=== PATIENT | female | born 1990 | race Caucasian/White ===

== ENCOUNTER 2019-02-23 16:50 | Emergency (ER) | payer OTHER ==
[~2019-02-23] VITALS: Ht 165.1 cm; Wt 55.8 kg
[~2019-02-23 16:50] MED LIST: ZITHROMAX Z PA250 MG PO
[2019-02-23] MEDS ORDERED: ROPINIROLE HYD0.5 MG PO (17:18)
[2019-02-23] MEDS ORDERED: ZOFRAN4 MG PO (17:18)
== END 2019-02-23 17:20 | disposition home or self-care (01) ==
LOC: ED 16:50
DX: F19.10 Other psychoactive substance abuse, uncomplicated (principal); R11.2 Nausea with vomiting, unspecified; R50.9 Fever, unspecified; R42 Dizziness and giddiness; F11.10 Opioid abuse, uncomplicated; F15.10 Other stimulant abuse, uncomplicated; F17.200 Nicotine dependence, unspecified, uncomplicated

== ENCOUNTER 2019-02-24 14:41 | Inpatient (IN) | payer OTHER ==
[~2019-02-24] VITALS: Ht 165.1 cm; Wt 57.3 kg
--- NOTE | ~2019-02-24 | CON ---
[place], [place] REPORT OF CONSULTATION NAME: JULI FRANCES UNIT #: [id number] ROOM: 517 DOCTOR: MACI AVLLE MD BIRTHDATE: [birth year] DOS: 02/25/2019 CHIEF COMPLAINT: "I'm going through a really bad detoxification." HISTORY OF PRESENT ILLNESS: This is a 28-year-old white female who was admitted due to severe detoxification. The patient is an active IV heroin user utilizing heroin night at 10 times a day. She has been using for multiple years with a period of brief sobriety. Additionally, she has started to use methamphetamine as well. The patient was admitted now to the [facility], but is actively detoxing, reporting poor sleep and appetite, nausea, vomiting, diaphoresis, shaking, and poor sleep. The patient states that as a young child, she had seen a psychiatrist and a counselor but does not remember what medication she was on in the past. MENTAL STATUS: She is alert and oriented. Mood does seem to be depressed with anxious overtones. She does appear somewhat distraught and uncomfortable, and admits to active withdrawal symptoms. There is no hypomania, mary, or psychosis. Memory is intact. DIAGNOSIS: Major depression, recurrent and polysubstance dependence. PLAN: I will start her on Zyprexa 2.5 mg in the morning and 5 mg at night along with Remeron 15 mg at bedtime and discontinue the trazodone. Both the Remeron and the Zyprexa will block a lot of the withdrawal symptoms. They will decrease nausea and vomiting; they will stop some of the restlessness, relieve the anxiety, and improve sleep and appetite. I did tell her that if she continues to experience withdrawal symptoms in the morning, please have the resident on the case call me, and I can offer other suggestions to make her comfortable. At this point, when she is ready for discharge, she can follow up in my office in [place]. MACI VALLE MD CM:CONSTR:REPORT OF CONSULTATION 1007 02/26/19 0136 interface
[~2019-02-24 14:41] MED LIST changes: +ROPINIROLE HYD0.5 MG PO; +ZOFRAN4 MG PO
[2019-02-24 14:48] VITALS: BP 122/73
[2019-02-24 15:50] LABS: URINE AMPHETAMINES > 1000 (1000ng/ml); URINE BARBITURATES > 200 (200ng/ml); URINE BENZODIAZEPINES < 200 (200ng/ml); URINE CANNABINOIDS (THC) > 50 (50ng/ml); URINE COCAINE < 300 (300ng/ml); URINE METHADONE < 300 (300ng/ml); URINE OPIATES > 300 (300ng/ml)
[2019-02-24 15:54] LABS: URINE PHENCYCLIDINE < 25 (25ng/ml)
[2019-02-24 15:55] LABS: BASO % 0.3 % (0.0-1.0); EOS % 0.1 % (1.0-4.0); HEMATOCRIT 36.9 % (37.0-47.0); HEMOGLOBIN 12.5 g/dl (12.0-16.0); LYMPH # 2.3 10*3/uL (1.3-4.4); LYMPH % 24.8 % (27.0-41.0); MEAN CELL VOLUME 89.8 fl (81.0-99.0); MEAN CORPUSCULAR HGB 30.4 pg (27.0-31.0); MEAN CORPUSCULAR HGB CONC 33.9 g/dl (33.0-37.0); MEAN PLATELET VOLUME 10.1 fl (9.6-12.3); MONO # 0.7 10*3/uL (0.1-1.0); NEUT # 6.3 10*3/uL (2.3-7.9); NEUT % 67.5 % (47.0-73.0); PLATELET COUNT AUTOMATED 281 10*3/uL (130-400); RED BLOOD COUNT 4.11 10*6/uL (4.10-5.10); RED CELL DISTRI WIDTH 13.2 % (0-14.5); WHITE BLOOD COUNT 9.3 10*3/uL (4.8-10.8)
[2019-02-24 16:10] LABS: ALBUMIN 3.4 gm/dl (3.1-4.5); ALKALINE PHOSPHATASE 72 U/L (45-117); BUN 12 mg/dl (7-24); CHLORIDE 107 mmol/L (98-107); CREATININE 0.67 mg/dL (0.55-1.02); POTASSIUM 2.8 mmol/L (3.5-5.1); SGOT/AST 9 IU/L (3-35); SGPT/ALT 26 U/L (12-78); SODIUM 143 mmol/L (136-145)
[2019-02-24 16:27] LABS: ETHYL ALCOHOL < 3.0 mg/dl (<3)
--- NOTE | 2019-02-24 16:30 | NUR ---
Patient meets [facility] criteria. CINA=15. Wants to go to an inpatient setting post discharge. Luiz Fritz, Disability Manager
--- NOTE | 2019-02-24 16:30 | NUR ---
MULTIPLE INTACT SCABBED AREAS TO PTS ARMS AND LEGS. PT STATES THAT SHE PICKS THESE AREAS. TWO WOUND PHOTOS WERE TAKEN OF THE RIGHT UPPER ARM AND BACK OF LEFT UPPER ARM.
--- NOTE | 2019-02-24 17:50 | NUR ---
Time: 1749 A 28 year old FEMALE admitted to under services of LEAH BREAUX DO. Pt. arrived via ambulatory from ER. Chief complaint: SUBSTANCE ABUSE. FERCHO EDWARD
[2019-02-24 18:15] VITALS: BP 118/75
[2019-02-24 20:00] VITALS: BP 118/75
--- NOTE | 2019-02-24 20:17 | NUR ---
PT REQUESTED AND RECIEVED PRN TYLENOL, ZOFRAN, AND VISTERIL FOR NAUSEA, ANXIETY AND PAIN. WILL MONITOR.
--- NOTE | 2019-02-24 21:12 | NUR ---
PT STATES THAT PREVIOUS PRN MEDS WERE EFFECTIVE.
--- NOTE | 2019-02-24 23:28 | NUR ---
PATIENT IS SLEEPING WITH EASY AND REGULAR RESPERS ON ROOM AIR, AROUSES EASILY FOR ASSESSMENT. DENIES ANY WITHDRAWL SYMPTOMS AT THIS TIME AND NONE NOTED ON ASSESSMENT. BED IS LOW, LOCKED, AND CALL LIGHT IS WITHIN REACH. WILL CONTINUE TO MONITOR.
[2019-02-25] VITALS: BP 120/88
[2019-02-25 07:00] LABS: BASO # 0.1 10*3/uL (0.0-0.1); BASO % 0.8 % (0.0-1.0); EOS # 0.1 10*3/uL (0.0-0.4); HEMATOCRIT 38.4 % (37.0-47.0); HEMOGLOBIN 12.5 g/dl (12.0-16.0); LYMPH # 2.9 10*3/uL (1.3-4.4); LYMPH % 47.5 % (27.0-41.0); MEAN CELL VOLUME 91.2 fl (81.0-99.0); MEAN CORPUSCULAR HGB 29.7 pg (27.0-31.0); MEAN CORPUSCULAR HGB CONC 32.6 g/dl (33.0-37.0); MEAN PLATELET VOLUME 10.2 fl (9.6-12.3); MONO # 0.3 10*3/uL (0.1-1.0); MONO % 4.9 % (3.0-9.0); NEUT # 2.8 10*3/uL (2.3-7.9); NEUT % 45.6 % (47.0-73.0); PLATELET COUNT AUTOMATED 255 10*3/uL (130-400); RED BLOOD COUNT 4.21 10*6/uL (4.10-5.10); RED CELL DISTRI WIDTH 13.7 % (0-14.5); WHITE BLOOD COUNT 6.1 10*3/uL (4.8-10.8)
[2019-02-25 07:19] LABS: BUN 11 mg/dl (7-24); CHLORIDE 110 mmol/L (98-107); CREATININE 0.58 mg/dL (0.55-1.02); SODIUM 143 mmol/L (136-145)
[2019-02-25 08:00] VITALS: BP 124/74
--- NOTE | 2019-02-25 10:00 | NUR ---
DR. VALLE WANTED HIS NAME TO BE CONSULTED SO PATIENT WOULD SHOW UP ON HIS LIST BECAUSE DR. VALDEZ IS OUT.
--- NOTE | 2019-02-25 10:08 | NUR ---
JULI FRANCES [id number] Please refer to the physician's history and physical for past medical history, comorbid conditions, and allergies. Diagnosis: DRUG ABUSE SUBSTANCE ABUSE Hugo Score: 21,LOW OR NO RISK WOUND DESCRIPTIONS: Wound Number: 1 Location of the wound: right uppper arm lateral Thickness: Full Size: 2.2cm x 1.5cm x 0.1cm Tunneling: none Undermining: none Sinus Tract: none Presence of Exudate: Serous Amount: Light Color: Brown, red, yellow Odor: None Periwound Skin Appearance: Erythema Wound edges: approximated Pain (associated with wound): tender at time of assessment How does patient state this happened? 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 Surface the patient is resting on: Position Pro SKIN PREVENTION RECOMMENDATION: 1. Pressure redistribution support surface as appropriate 2. Elevate heels 3. Remove boots/TEDS every shift and reapply 4. Head of bed 30 degrees as tolerated 5. Assess nutrition and hydration 6. Manage moisture 7. Avoid the use of containment devices while in bed 8. Use absorptive products on surfaces limit layers of linens on bed 9. Turn and reposition every 1-2 hours in bed and every 1 hour in chair as tolerated 10. Weight shifts every 15 minutes while up in chair 11. Offloading with pillows or device to keep heels elevated off bed 12. Monitor skin at least every shift 13. Inspect under medical devices twice a day WOUND TREATMENT RECOMMENDATIONS: Cleanse right upper arm lateral, right upper arm medial and left upper arm with nss and apply sureprep around the wound thereahoney to wound bed and cover with bandaid daily. Cleanse bilateral upper extremities and bilateral lower extremities with soap and water and apply aqauphor BID. Patient state she will care for these areas at home once she is discharged like she did previously
--- NOTE | 2019-02-25 10:28 | NUR ---
Dr. Vyas given wound care recommendations he stated he will give them to Dr. Mtz.
[2019-02-25 12:00] VITALS: BP 116/62
[2019-02-25 16:00] VITALS: BP 123/82; BP 125/74
--- NOTE | 2019-02-25 16:10 | NUR ---
[place] STAFF FOLLOWED UP WITH PATIENT. PATIENT IS WANTING RSIDENTIAL TREATMENT. [place] STAFF PROVIDED PATINET WITH REFERRAL OPTIONS. [place] STAFF WILL FOLLOW BACK UP WITH PATIENT. BERNARD SMITH B.A. LAB SYSTEMS ANALYST
--- NOTE | 2019-02-25 19:49 | NUR ---
PO VISTARIL & PO MOTRIN ADMINISTERED FOR C/O ANXIETY & GENERALIZED ACHES. WILL MONITOR EFFECTIVENESS. CALL LIGHT IN REACH.
[2019-02-25 20:00] VITALS: BP 119/73
--- NOTE | 2019-02-25 20:07 | NUR ---
NOTIFIED OF PATIENT'S C/O RESTLESS LEGS AND NO REQUIP ORDERED. DISCUSSED NO KNOWN ALLERGIES. NEW ORDER RECEIVED FOR PO REQUIP 0.5 MG Q12H PRN.
--- NOTE | 2019-02-25 21:14 | NUR ---
PO REQUIP ADMINISTERED PER PRN ORDER FOR C/O RESTLESS LEGS. PT STATES EARLIER MEDICATIONS EFFECTIVE. WILL MONITOR.
--- NOTE | 2019-02-25 22:04 | NUR ---
EARLIER MEDICATIONS EFFECTIVE PER PT.
[2019-02-26] VITALS: BP 108/75
[2019-02-26 02:40] VITALS: BP 114/70
--- NOTE | 2019-02-26 02:40 | NUR ---
SCHEDULED SL SUBUTEX ADMINISTERED PER ORDER. PT DENIES ANY NEEDS. WILL MONITOR. CALL LIGHT IN REACH.
[2019-02-26 08:00] VITALS: BP 114/78
--- NOTE | 2019-02-26 08:49 | NUR ---
Dr. Mtz notified of wound care recommendations.
--- NOTE | 2019-02-26 12:17 | NUR ---
PATIENT SENT PATIENT'S ASSESSMENT TO [facility]. [place] STAFF WILL FOLLOW UP WITH FACILITY AND PATIENT. BERNARD SMITH B.A. ECONOMIC CONSULTANT
--- NOTE | 2019-02-26 12:32 | NUR ---
MEDICAYED WITH REQUIP MOTRIN AND VISTARIL PER REQUEST AND ORDERS.
--- NOTE | 2019-02-26 14:59 | NUR ---
CHINO TOVAR VISTARIL HELPED EARLIER.
--- NOTE | 2019-02-26 15:55 | NUR ---
[place] STAFF SPOKE WITH PATIENT. [facility] HAS NO BEDS AT THIS TIME. [place] STAFF SENT ASSESSMENT TO [facility] FOR REVIEW. [place] STAFF WILL FOLLOW UP WITH PATIENT WITH ANY UPDATES. BERNARD SMITH B.A. CRISIS WORKER
[2019-02-26 16:00] VITALS: BP 111/65
[2019-02-26 20:00] VITALS: BP 119/64
[2019-02-27] VITALS: BP 123/73
--- NOTE | 2019-02-27 02:16 | NUR ---
24 HR chart check completed.
[2019-02-27 08:00] VITALS: BP 122/70
[2019-02-27 10:55] LABS: BUN 13 mg/dl (7-24); CHLORIDE 108 mmol/L (98-107); CREATININE 0.59 mg/dL (0.55-1.02); SODIUM 141 mmol/L (136-145)
[2019-02-27 12:00] VITALS: BP 124/74
[2019-02-27] MEDS ORDERED: OLANZAPINE5 MG PO ×2 (12:11)
[2019-02-27] MEDS ORDERED: MIRTAZAPINE15 M2 PO (12:21)
[2019-02-27] MEDS ORDERED: NICODERM CQ1 EAC2 T (12:21)
[2019-02-27] MEDS ORDERED: ROPINIROLE HYD0.5 MG PO (12:21)
[2019-02-27] MEDS ORDERED: ZOFRAN4 MG PO (12:21)
[2019-02-27] MEDS ORDERED: ATARAX,VISTARIL50 MG PO (12:21)
[2019-02-27] MEDS ORDERED: NICODERM T (12:21)
--- NOTE | 2019-02-27 13:02 | NUR ---
PATIENT HAS BEEN ACCEPTED TO [facility] FOR HER AFTERCARE. [place] STAFF WILL SET UP TRANSPORTATION THROUGH HER INSURANCE. PATIENT AGREES AND UNDERSTANDS HER AFTERCARE PLAN. BERNARD SMITH B.A. STAINED GLASS GLAZIER HELPER
--- NOTE | 2019-02-27 14:10 | NUR ---
PT DISCHARGED AT THIS TIME. VERBALIZED UNDERSTANDING OF DISCHARGE INSTRUCTION. PT TAKING UBER TO INPATIENT REHAB.
== END 2019-02-27 14:10 | disposition home or self-care (01) | DRG 897 ==
LOC: ED 14:41 → 5E 16:46 → EDHOLD 16:46 → 5E 16:59
PROVIDERS: Emergency Medicine; Internal Medicine; ADMIT Internal Medicine
DX: F11.23 Opioid dependence with withdrawal (principal); F33.9 Major depressive disorder, recurrent, unspecified; E87.6 Hypokalemia; F42.4 Excoriation (skin-picking) disorder; F17.210 Nicotine dependence, cigarettes, uncomplicated; D72.810 Lymphocytopenia; Z98.891 History of uterine scar from previous surgery; Z83.3 Family history of diabetes mellitus; Z81.3 Family history of other psychoactive substance abuse and dependence; Z82.49 Family history of ischemic heart disease and other diseases of the circulatory system; Z83.42 Family history of familial hypercholesterolemia